=== PATIENT | male | born 1995 | race Caucasian/White ===

== ENCOUNTER 2017-10-10 14:32 | Outpatient (CLI) | payer SELFPAY | END 2017-10-10 14:33 | disposition home or self-care (01) | LOC: SC 14:32 | PROVIDERS: ATTEND Internal Medicine Pulmonary Disease | DX: R53.83 Other fatigue (principal); G47.8 Other sleep disorders; F32.9 Major depressive disorder, single episode, unspecified | CPT/HCPCS: 99203; 99212 ==

== ENCOUNTER 2017-11-22 14:06 | Outpatient (CLI) | payer SELFPAY | END 2017-11-22 14:07 | disposition home or self-care (01) | LOC: SC 14:06 | PROVIDERS: ATTEND Nurse Practitioner Family | DX: G47.33 Obstructive sleep apnea (adult) (pediatric) (principal) | CPT/HCPCS: 99212; 99214 ==

== ENCOUNTER 2018-01-16 14:45 | Outpatient (CLI) | payer SELFPAY | END 2018-01-16 14:46 | disposition home or self-care (01) | LOC: SC 14:45 | PROVIDERS: ATTEND Nurse Practitioner Family | DX: G47.33 Obstructive sleep apnea (adult) (pediatric) (principal) | CPT/HCPCS: 99212; 99214 ==

== ENCOUNTER 2018-04-17 14:48 | Outpatient (CLI) | payer SELFPAY | END 2018-04-17 14:49 | disposition home or self-care (01) | LOC: SC 14:48 | PROVIDERS: ATTEND Nurse Practitioner Family | DX: G47.33 Obstructive sleep apnea (adult) (pediatric) (principal) | CPT/HCPCS: 99212; 99213 ==

== ENCOUNTER 2018-08-06 13:29 | Outpatient (CLI) | payer SELFPAY ==
[~2018-08-06 13:29] MED LIST: GADOBUTROL 10 MMOL/10 ML VIAL ONE
[2018-08-06] MEDS ORDERED: GADOBUTROL 10 MMOL/10 ML VIAL IVP ONE (14:04)
--- NOTE | 2018-08-06 14:21 | MRI Report ---
Reason: FATIGUE,UNSPECIFIED TYPE,IMBALANCE,DEPRESSED MOOD Procedure Date: 08/06/2018 Accession Number: [id number] / [id number] Procedure: MRI - Brain W/WO CPT Code: FULL RESULT: EXAM: MRI BRAIN WITHOUT AND WITH CONTRAST EXAM DATE: 08/06/2018 01:57 PM. CLINICAL HISTORY: Chronic fatigue, depressed mood and balance issues. COMPARISON: None. TECHNIQUE: Multiplanar, multisequence T1-weighted and fluid-sensitive MR sequences of the brain were performed. Sequences optimized for routine evaluation. Other: None. IV Contrast: Without and with 10 mL Gadavist. FINDINGS: Brain Volume: Normal for age. Parenchyma: No acute hemorrhage, mass, or infarct. No white matter lesions identified. No abnormal enhancement. Ventricles/Cisterns: No hydrocephalus. No abnormal extra-axial fluid collection or hemorrhage. Orbits: Symmetric and unremarkable. Sella Turcica: The pituitary gland, cavernous sinuses, suprasellar cistern and optic chiasm are unremarkable. IAC: Symmetric and unremarkable. Vasculature: Normal signal flow void is seen in the major arterial structures at the skull base. The dural sinuses are patent and enhance normally. Sinuses: No acute sinus disease. Bones: No focal pathologic appearing marrow signal changes. Other: Nonspecific mild prominence of adenoids and upper cervical lymph nodes. IMPRESSION: No acute intracranial abnormality or enhancing mass. Normal MRI appearance of the brain. [facility]
== END 2018-08-06 13:30 | disposition home or self-care (01) ==
LOC: DI 13:29
PROVIDERS: ATTEND Psychiatry & Neurology Neurology
DX: R53.83 Other fatigue (principal); R26.89 Other abnormalities of gait and mobility; F32.9 Major depressive disorder, single episode, unspecified
CPT/HCPCS: 70553; A9585

== ENCOUNTER 2018-08-07 12:53 | Outpatient (CLI) | payer SELFPAY ==
[2018-08-07] MEDS ORDERED: GADOBUTROL 10 MMOL/10 ML VIAL ONE (13:26)
[2018-08-07] MEDS ORDERED: GADOBUTROL 10 MMOL/10 ML VIAL IVP ONE (14:15)
--- NOTE | 2018-08-07 15:01 | MRI Report ---
Reason: FATIGUE,UNSPECIFIED TYPE,IMBALANCE,DEPRESSED MOOD Procedure Date: 08/07/2018 Accession Number: [id number] / [id number] Procedure: MRI - Cervical Spine W/WO CPT Code: FULL RESULT: EXAM: MRI CERVICAL SPINE WITHOUT AND WITH CONTRAST EXAM DATE: 08/07/2018 02:14 PM. CLINICAL HISTORY: Depressed mood, imbalance and fatigue. COMPARISON: None. TECHNIQUE: Multiplanar, multisequence T1-weighted and fluid-sensitive sequences of the cervical spine before and after administration of intravenous contrast. Other: None. IV contrast: Without and with 10 mL Gadavist. FINDINGS: Neurologic Structures: The visualized posterior fossa structures are unremarkable. No signal abnormality in the visualized spinal cord. Alignment: No scoliosis or spondylolisthesis. Bone Marrow: No gross fractures or bone lesions. No marrow edema or abnormal enhancement. Interspace Levels/Facets: C1-C2: Unremarkable. C2-C3: Unremarkable. C3-C4: Mild ventral thecal sac indentation by a shallow broad-based posterior disk protrusion. Minimal central stenosis. No cord impingement. Additional small intraforaminal disk protrusions are present and there may be a left intraforaminal annular fissure but foraminal stenosis is negligible and there is no nerve root impingement. C4-C5: Right greater than left uncinate process hypertrophic degenerative spurring accompanied by intraforaminal disk bulge. This is associated with bilateral foraminal stenosis that appears mild on the left but moderate on the right. The central canal is patent, no cord impingement. Unremarkable facets. No significant disk space narrowing. C5-C6: Minimal uncinate process spurring on the right. No significant stenosis. C6-C7: Mild ventral thecal sac indentation by a shallow midline posterior disk protrusion with annular fissure. Negligible central canal narrowing. No cord impingement. Widely patent neural foramina. C7-T1: Minimal disk space dehydration and negligible narrowing. Mild ventral thecal sac indentation by a shallow posterior disk protrusion with enhancing annular fissure. Minimal central stenosis. No cord impingement. Patent neural foramina. Spinal Canal: No enhancing lesions within the spinal canal. No epidural abscess. Musculature: Normal. No edema, enhancement, or fatty atrophy. Other: The paravertebral and prevertebral soft tissues are normal. IMPRESSION: 1. 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 2. Additional degenerative stenosis at multiple levels is present as detailed above that appears less prominent without other evidence of significant stenosis or neural impingement. 3. Unremarkable appearance of the cervical cord, no abnormal enhancement. RADIA
== END 2018-08-07 12:54 | disposition home or self-care (01) ==
LOC: DI 12:53
PROVIDERS: ATTEND Psychiatry & Neurology Neurology
DX: M50.20 Other cervical disc displacement, unspecified cervical region (principal); M48.02 Spinal stenosis, cervical region; R53.83 Other fatigue; R26.89 Other abnormalities of gait and mobility; F32.9 Major depressive disorder, single episode, unspecified
CPT/HCPCS: 72156; A9585

== ENCOUNTER 2021-05-26 10:00 | Outpatient (CLI) | payer SELFPAY ==
--- NOTE | 2021-05-27 00:19 | XRAY Report ---
PROCEDURE: Chest 2 View X-Ray INDICATIONS: DYSPNEA,UNSPECIFIED TECHNIQUE: 2 view(s) of the chest. COMPARISON: None. FINDINGS: Surgical changes and devices: None. Lungs and pleura: No pleural effusions or pneumothorax. Mild appearance of retrocardiac opacity. Mediastinum: Mediastinal contours are normal. Heart size is normal. Bones and chest wall: No suspicious bony abnormalities. Soft tissues appear unremarkable. IMPRESSION: Appearance of retrocardiac opacity suggestive of pneumonia. Reviewed by: Marielle Clark MD on 05/27/2021 12:17 AM PDT Approved by: Marielle Clark MD on 05/27/2021 12:17 AM PDT Station ID: [id number]
== END 2021-05-26 10:01 | disposition home or self-care (01) ==
LOC: DI 10:00
PROVIDERS: ATTEND Student in an Organized Health Care Education/Training Program
DX: R06.00 Dyspnea, unspecified (principal)

== ENCOUNTER 2022-09-03 14:09 | Outpatient (CLI) | payer SELFPAY ==
--- NOTE | 2022-09-03 20:13 | XRAY Report ---
PROCEDURE: Chest 2 View X-Ray INDICATIONS: ATYPICAL CHEST PAIN TECHNIQUE: 2 views of the chest were acquired. COMPARISON: CXR 05/26/2021. FINDINGS: Surgical changes and devices: None. Lungs and pleura: No pleural effusions or pneumothorax. Lungs are clear. Mediastinum: Mediastinal contours are unchanged. Heart size is normal. Bones and chest wall: No suspicious bony abnormalities. Soft tissues appear unremarkable. IMPRESSION: No acute cardiopulmonary abnormality. Reviewed by: Romaine Tobar MD on 09/03/2022 8:11 PM PST Approved by: Romaine Tobar MD on 09/03/2022 8:11 PM PST Station ID: [id number]
== END 2022-09-03 14:10 | disposition home or self-care (01) ==
LOC: DI 14:09
PROVIDERS: ATTEND Registered Nurse
DX: R07.89 Other chest pain (principal)